=== PATIENT | male | born 1985 | race Caucasian/White ===

== ENCOUNTER 2023-01-07 10:40 | Emergency (ER) | payer OTHER, SELFPAY ==
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
[2023-01-07 10:55] VITALS: BP 137/82; PULSE 109; RESP 16; TEMP 36.4; O2SAT 97
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
== END 2023-01-07 12:37 | disposition home or self-care (01) ==
PROVIDERS: Emergency Provider Emergency Medicine
DX: S43.52XA Sprain of left acromioclavicular joint, initial encounter (principal); S00.83XA Contusion of other part of head, initial encounter; Y04.2XXA Assault by strike against or bumped into by another person, initial encounter
CPT/HCPCS: 73030; 99283; A4565

== ENCOUNTER 2023-02-20 13:07 | Outpatient (CLI) | payer OTHER, SELFPAY ==
--- NOTE | ~2023-02-20 | XR_ITS ---
EXAM: XR AC joint BI DATE: 02/20/2023 13:18 HISTORY: Rt shoulder pain . COMPARISON: 01/07/2023. FINDINGS: Normal mineralization. The right AC joint is aligned and normal in appearance. Asymmetric elevation of the distal left clavicle with respect to the acromion, AC joint widening to 9 mm and gre ater than the right side, with increased coracoclavicular distance of 21 mm. IMPRESSION: Moderate/grade 2 left AC joint separation. Reviewed, dictated and finalized at location K.
== END 2023-02-20 13:08 | disposition home or self-care (01) ==
PROVIDERS: Visit Provider Orthopaedic Surgery
DX: S43.102A Unspecified dislocation of left acromioclavicular joint, initial encounter (principal); T14.90XA Injury, unspecified, initial encounter
CPT/HCPCS: 73050